=== PATIENT | male | born 1980 | race Hispanic/Latino ===

== ENCOUNTER 2017-09-11 21:41 | Emergency (ER) | payer OTHER ==
[~2017-09-11] VITALS: Ht 195.6 cm; Wt 93.0 kg
[2017-09-11] MEDS ORDERED: TETANUS/DIPHTHERIA TOX ADULT 0.5 ML SYR IM ONE (23:00)
[2017-09-11 23:24] VITALS: BP 105/65
== END 2017-09-11 23:10 | disposition home or self-care (01) ==
LOC: FSED 21:41
DX: S61.212A Laceration without foreign body of right middle finger without damage to nail, initial encounter (principal); Y92.009 Unspecified place in unspecified non-institutional (private) residence as the place of occurrence of the external cause; Z23 Encounter for immunization; W25.XXXA Contact with sharp glass, initial encounter
CPT/HCPCS: 90714; 99282